=== PATIENT | male | born 1975 | race Caucasian/White ===

== ENCOUNTER 2018-06-12 09:43 | Day surgery (SDC) | payer OTHER ==
[2018-06-06 13:25] VITALS: BMI 27.6
[2018-06-12] MEDS ORDERED: ONDANSETRON 4 MG/2 ML VIAL IVPUSH PRN (12:04)
[2018-06-12] MEDS ORDERED: PROMETHAZINE HCL 25 MG/1 ML VIAL IVPUSH PRN (12:04)
[2018-06-12] MEDS ORDERED: oxyCODONE HCL 5 MG TABLET PO PRN (12:04)
[2018-06-12] MEDS ORDERED: LACTATED RINGERS SOLUTION 1,000 ML IV SCH (12:15)
[2018-06-12] MEDS ORDERED: MIDAZOLAM HCL 2 MG/2 ML SINGLE DOSE VIAL ONE ×2 (12:32)
[2018-06-12] MEDS ORDERED: ROCURONIUM BROMIDE 50 MG/5 ML VIAL ONE ×2 (12:40→13:09)
[2018-06-12] MEDS ORDERED: fentaNYL CITRATE 250 MCG/5 ML VIAL ONE (12:40)
[2018-06-12] MEDS ORDERED: PROPOFOL 20 ML ONE (12:40)
[2018-06-12] MEDS ORDERED: ceFAZolin SODIUM 1 GM VIAL IVPB ONE (12:41)
[2018-06-12] MEDS ORDERED: LIDOCAINE 1%/EPI 1:100000 (50 ML MULTI DOSE VIAL) NR ONE (13:12)
[2018-06-12] MEDS ORDERED: DESFLURANE GAS 240 ML BOTTLE IH ONE (13:23)
[2018-06-12] MEDS ORDERED: NEOSTIGMINE METHYLSULFATE 0.5 MG/ML - 10 ML MDV ONE (14:17)
[2018-06-12] MEDS ORDERED: GLYCOPYRROLATE 0.2 MG/1 ML VIAL ONE (14:17)
--- NOTE | 2018-06-12 14:42 | OP ---
Operative Note - Note: Operative Date: 06/12/18 Pre-Operative Diagnosis: Multiple Lipomas of the neck, back and abdomen Operation: Excision of lipomas of the posterior neck, Left and right flanks, and Left abdomen Post-Operative Diagnosis: Same as Pre-op Surgeon: Bob Sánchez Project Drilling Engineer: Haider Ugalde Anesthesiologist/CITY ROUTEMAN: Sherry Little MD Anesthesia: General Estimated Blood Loss (mls): 20 Fluid Volume Replaced (mls): 600 Operative Report Dictated: Yes
--- NOTE | 2018-06-12 14:43 | SURG ---
Surgery Oyster Preparer Note Oyster Preparer: Haider Ugalde PA-C Date of Service: 06/12/18 Diagnosis: Multiple Lipomas of the neck, back and abdomen Procedure: Excision of lipomas of the posterior neck, Left and right flanks, and Left abdomen I was present for the entirety of the operative procedure. For further detail, please refer to operative report.
--- NOTE | 2018-06-12 17:55 | OP ---
DATE OF OPERATION: 06/12/2018 SURGICAL ATTENDING: Anne Romano MD PREOPERATIVE DIAGNOSIS: Multiple subcutaneous masses of the posterior neck, left flank, and left lower abdomen. PROCEDURE: Excision of multiple subcutaneous masses. DESCRIPTION OF PROCEDURE: The patient was taken into the operating room, placed in a supine position, endotracheally intubated. All pressure points were checked and protected. He was then flipped into the prone position. The arms were tucked and checked. The neck and back were then prepped in the usual sterile fashion. A 5-cm horizontal incision was made in the posterior neck and carried down through subcutaneous tissues. A large fat-containing mass was identified, dissected free from surrounding tissues, and removed. It measured approximately 6 cm in diameter. Hemostasis was achieved, and the wound was then closed in 2 layers. Two incisions were made in the left flank, and fatty masses were removed from each. Each wound was closed with Vicryl and Monocryl sutures. An incision was made in the right flank where 2 masses were removed. The wound was then closed in 2 layers. Sterile dressings and Dermabond were placed. The patient was then flipped to the supine position without difficulty. The abdomen was then prepped and draped in usual sterile fashion. A left lower abdomen incision was made and carried down through subcutaneous tissues. The left lower abdominal mass was excised and sent to Pathology. The wound was then closed in 2 layers. Sterile dressings were placed. The patient was then extubated, awakened, and taken to recovery in stable condition. Dr. Romano, the attending surgeon, was present throughout the entire procedure. ANNE ROMANO M.D. [id number]
[2018-06-12] MEDS ORDERED: ONDANSETRON 4 MG/2 ML VIAL ONE (17:57)
[2018-06-12 20:00] VITALS: BP 113/63; PULSE 76; TEMP 97.8
--- NOTE | 2018-06-15 19:06 | PATH ---
Surgical Pathology Report Patient Name: AISLINN HAMMONDS [place]. Rec. #: [id number] /Age/Gender: 1975 (Age: 42) / M Account: [id number] Location: [facility] SURGICAL Taken: 06/12/2018 Received: 06/13/2018 Reported: 06/15/2018 Physicians: Bob Sánchez M.D. Specimen(s) Received A: LEFT POSTERIOR NECK MASS B: LEFT FLANK MASS #1 C: LEFT FLANK MASS #2 D: RIGHT FLANK MASS #1 E: RIGHT FLANK MASS #2 F: LEFT LOWER ABDOMEN MASS Clinical History Masses left lower neck, left flank, left abdomen and right flank Final Diagnosis A. POSTERIOR NECK, MASS, LEFT, EXCISION: MATURE FIBROADIPOSE TISSUE CONSISTENT WITH LIPOMA. B. FLANK MASS #1, LEFT, EXCISION: MATURE FIBROADIPOSE TISSUE CONSISTENT WITH LIPOMA. C. FLANK MASS #2, LEFT, EXCISION: MATURE FIBROADIPOSE TISSUE CONSISTENT WITH LIPOMA. D. FLANK MASS #1, RIGHT, EXCISION: MATURE FIBROADIPOSE TISSUE CONSISTENT WITH LIPOMA. E. FLANK MASS #2, RIGHT, EXCISION: MATURE FIBROADIPOSE TISSUE CONSISTENT WITH LIPOMA. F. LOWER ABDOMEN, MASS, LEFT, EXCISION: MATURE FIBROADIPOSE TISSUE CONSISTENT WITH LIPOMA. Electronically Signed Sangita Zurita M.D. Gross Description A. Received in formalin labeled "left posterior neck mass," is an 8.0 x 6.5 x 4.3 cm portion of coleman-yellow, lobulated soft tissue. Sectioning reveals homogeneous yellow, smooth fat. No areas of hemorrhage or necrosis are identified. Bowling Ball Assembler sections are submitted in 2 cassettes. B. Received in formalin labeled "left flank mass #1," is a 2.2 x 2.0 x 1.1 cm portion of yellow, lobulated soft tissue. Sectioning reveals homogeneous yellow, smooth fat. No areas of hemorrhage or necrosis are identified. Bowling Ball Assembler sections are submitted in one cassette. C. Received in formalin labeled "left flank mass #2," is a 3.0 x 2.4 x 1.7 cm portion of yellow, lobulated soft tissue. Sectioning reveals homogeneous yellow, smooth fat. No areas of hemorrhage or necrosis are identified. Bowling Ball Assembler sections are submitted in one cassette. D. Received in formalin labeled "right flank mass #1," is a 2.8 x 1.5 x 1.4 cm portion of yellow, lobulated soft tissue. Sectioning reveals homogeneous yellow, smooth fat. No areas of hemorrhage or necrosis are identified. Bowling Ball Assembler sections are submitted in one cassette. E. Received in formalin labeled "right flank mass #2," is a 4.0 x 2.5 x 2.0 cm portion of yellow, lobulated soft tissue. Sectioning reveals homogeneous yellow, smooth fat. No areas of hemorrhage or necrosis are identified. Bowling Ball Assembler sections are submitted in one cassette. F. Received in formalin labeled "left lower abdomen mass," is a 4.3 x 3.3 x 1.7 cm portion of yellow, lobulated soft tissue. Sectioning reveals homogeneous yellow, smooth fat. No areas of hemorrhage or necrosis are identified. Bowling Ball Assembler sections are submitted in one cassette. 06/14/2018 [facility]06/14/2018
== END 2018-06-12 19:15 | disposition home or self-care (01) ==
LOC: JASU-SURG 09:43
PROVIDERS: ATTEND Surgery
PROC: 0JB80ZZ Excision of Abdomen Subcutaneous Tissue and Fascia, Open Approach (ICD-10-PCS; 2018-06-12)
PROC: 0JB80ZZ Excision of Abdomen Subcutaneous Tissue and Fascia, Open Approach (ICD-10-PCS; 2018-06-12)
PROC: 0JB70ZZ Excision of Back Subcutaneous Tissue and Fascia, Open Approach (ICD-10-PCS; 2018-06-12)
PROC: 0JB70ZZ Excision of Back Subcutaneous Tissue and Fascia, Open Approach (ICD-10-PCS; 2018-06-12)
PROC: 0JB50ZZ Excision of Left Neck Subcutaneous Tissue and Fascia, Open Approach (ICD-10-PCS; 2018-06-12)
PROC: 0JB80ZZ Excision of Abdomen Subcutaneous Tissue and Fascia, Open Approach (ICD-10-PCS; 2018-06-12)
PROC: 0JB70ZZ Excision of Back Subcutaneous Tissue and Fascia, Open Approach (ICD-10-PCS; 2018-06-12)
PROC: 0JB50ZZ Excision of Left Neck Subcutaneous Tissue and Fascia, Open Approach (ICD-10-PCS; principal; 2018-06-12 11:00)
DX: D17.0 Benign lipomatous neoplasm of skin and subcutaneous tissue of head, face and neck (principal); D17.1 Benign lipomatous neoplasm of skin and subcutaneous tissue of trunk; D48.1 Neoplasm of uncertain behavior of connective and other soft tissue
CPT/HCPCS: 88304-TC; 94760